=== PATIENT | female | born 1950 | race Two or more races ===

== ENCOUNTER 2022-01-23 08:30 | Outpatient (CLI) | payer OTHER | END 2022-01-23 08:32 | disposition home or self-care (01) | LOC: SONOGRAMA 08:30 | PROVIDERS: ATTEND Pathology Anatomic Pathology & Clinical Pathology | DX: E04.9 Nontoxic goiter, unspecified (principal) ==

== ENCOUNTER 2023-02-02 14:16 | Outpatient (CLI) | payer OTHER | END 2023-02-02 14:28 | disposition home or self-care (01) | LOC: MAMO-SONO 14:16 | DX: Z12.31 Encounter for screening mammogram for malignant neoplasm of breast (principal) ==

== ENCOUNTER 2023-02-25 10:31 | Outpatient (CLI) | payer OTHER | END 2023-02-25 10:35 | disposition home or self-care (01) | LOC: SONOGRAMA 10:31 | DX: N60.11 Diffuse cystic mastopathy of right breast (principal); N60.12 Diffuse cystic mastopathy of left breast; Z12.31 Encounter for screening mammogram for malignant neoplasm of breast ==